=== PATIENT | male | born 1970 | race Caucasian/White ===

== ENCOUNTER 2018-10-17 13:00 | Day surgery (SDC) | payer BC ==
[~2018-10-17] VITALS: Ht 167.6 cm; Wt 85.6 kg
[2018-10-17] VITALS (8 sets, daily range): BP systolic 116–147; BP diastolic 75–91; PULSE 62–70; RESP 16–25; Ht 167.6 cm; Wt 85.6 kg
[2018-10-17] MEDS ORDERED: ALLOPURINOL (15:05)
[2018-10-17] MEDS ORDERED: METOPROLOL (15:05)
[2018-10-17] MEDS ORDERED: AMLODIPINE (15:05)
[2018-10-17] MEDS ORDERED: LEVOFLOXACIN (15:05)
[2018-10-17] MEDS ORDERED: GEMFIBROZIL (15:05)
--- NOTE | 2018-10-17 17:18 | PREAC ---
Date/Time of Note Date/Time of Note DATE: 10/17/18 TIME: 17:17 Anesthesia Eval and Record Evaluation Time Pre-Procedure Interview DATE: 10/17/18 TIME: 17:17 Age 48 Sex male NPO: 8 hrs Preoperative diagnosis screening Planned procedure colonoscopy Past Medical History Past Medical History: Includes Cardio: HTN, Dyslipidemia GI: Obesity Surgery & Anesthesia Issues No known issue Meds Anticoagulation: No Beta Catrachita within 24 hr: No Reason Beta Catrachita not given: Pt. not on B-Catrachita Reported Medications [Gemfibrozil] No Conflict Check 10/17/18 [Amlodipine] No Conflict Check 10/17/18 [Metoprolol] No Conflict Check 10/17/18 [Levofloxacin] No Conflict Check 10/17/18 [Allopurinol] No Conflict Check 10/17/18 Meds reviewed: Yes Allergies Coded Allergies: No Known Allergy (Unverified , 10/17/18) Allergies Reviewed: Yes Labs/Studies Labs Reviewed: Reviewed by anesthesiologist test: N/A Studies: ECG Pre-procedure Exam Last vitals Vital Signs Date Temp Pulse Resp B/P (MAP) Pulse Ox O2 O2 Flow FiO2 Time Delivery Rate 10/17/18 97.6 70 18 147/91 100 Room Air 16:41 (109) Airway: Adequate mouth opening, Adequate thyromental dist Mallampati: Mallampati II Teeth: Normal Lung: Normal Heart: Normal ASA Physical Status ASA physical status: 2 Emergency: None Planned Anesthetic General/MAC: Mask, MAC Pre-operative Attestations Prior to commencing anesthesia and surgery, the patient was re-evaluated, there was verification of: *The patient's identity *The results of appropriate recent lab work and preoperative vital signs *The above evaluation not changing prior to induction *Anesthetic plan, risk benefits, alternative and complications discussed with patient/family; questions answered; patient/family understands, accepts and wishes to proceed. NATACHA LY Oct 17, 2018 17:18
[2018-10-17] MEDS ORDERED: LIDOCAINE 2% (SDV) 5 ML INJ ONE (17:19)
[2018-10-17] MEDS ORDERED: PROPOFOL 200 MG INJ ONE (17:19)
[2018-10-17] MEDS ORDERED: PROPOFOL 40 ML ONE (17:19)
--- NOTE | 2018-10-18 08:00 | PAC ---
Date/Time of Note Date/Time of Note DATE: 10/18/18 TIME: 08:00 Post-Anesthesia Notes Post-Anesthesia Note Last documented vital signs Vital Signs Date Temp Pulse Resp B/P (MAP) Pulse Ox O2 O2 Flow FiO2 Time Delivery Rate 10/17/18 97.5 62 16 136/86 99 Room Air 18:10 (103) 10/17/18 4.0 17:43 Activity: WNL Respiratory function: WNL Cardiovascular function: WNL Mental status: Baseline Pain reasonably controlled: Yes Hydration appropriate: Yes Nausea/Vomiting absent: Yes NATACHA LY Oct 18, 2018 08:00
== END 2018-10-17 18:48 | disposition home or self-care (01) ==
LOC: GIL 13:00
PROVIDERS: ATTEND Internal Medicine Gastroenterology
DX: Z12.11 Encounter for screening for malignant neoplasm of colon (principal); D12.5 Benign neoplasm of sigmoid colon; K64.8 Other hemorrhoids; I10 Essential (primary) hypertension; E78.5 Hyperlipidemia, unspecified
CPT/HCPCS: 45380; 88305; Z7610